=== PATIENT | female | born 1990 | race Caucasian/White ===

== ENCOUNTER 2020-04-30 10:56 | Outpatient (CLI) | payer OTHER, SELFPAY ==
--- NOTE | ~2020-04-30 | US_ITS ---
EXAMINATION: US OB <= 14 weeks fetus DATE: 04/30/2020 11:27 INDICATION: Antepartum hemorrhage at the transition from the first to the second trimester of pregnan cy TECHNIQUE: Real-time pelvic ultrasound utilizing both a transvaginal and transabdominal probe was pe rformed. The interpreting radiologist was not present for the study. COMPARISON: 03/26/2020 FINDINGS: The uterus measures 15.0 x 11.2 x 10.0 cm. There is an intrauterine gestational sac. A yolk sac and pole are identified. The crown rump length measures 10.6 cm, which correlates with an estimated gestational age of 13 weeks and 5 days which is concordant with the previously estimated gestational age on ultrasound dated 03/26/2020. heart motion is identified measuring 154 beats per minute (b pm) by M-mode Doppler. There is a 4.1 x 1.9 x 1.0 cm anechoic subchorionic hematoma along the left in ferior margin of the placenta. The right ovary is not visualized. The left ovary measures 3.5 x 2.3 x 2.2 cm with internal vascular flow on color Doppler. IMPRESSION: 1. Single living fetus with heart rate of 154 bpm. 2. Small subchorionic hematoma. 3. [place]-rump length of 7.6 cm which is concordant with previously estimated gestational age by ultra sound of 13 weeks 5 days with ultrasound estimated date of delivery (DARCI) of 10/31/2020. Reviewed, dictated and finalized at location B. IMPRESSION: 1. Single living fetus with heart rate of 154 bpm. 2. Small subchorionic hematoma. 3. [place]-rump length of 7.6 cm which is concordant with previously estimated ge stational age by ultrasound of 13 weeks 5 days with ultrasound estimated date o f delivery (DARCI) of 10/31/2020.
== END 2020-04-30 10:57 | disposition home or self-care (01) ==
PROVIDERS: PCP Family Medicine; Visit Provider Obstetrics & Gynecology
DX: O46.92 Antepartum hemorrhage, unspecified, second trimester (principal); Z3A.13 13 weeks gestation of pregnancy
CPT/HCPCS: 76801

== ENCOUNTER 2020-10-10 09:27 | Outpatient (RCR) | payer OTHER, SELFPAY ==
[2020-10-10 10:00] VITALS: BP 124/77; PULSE 96
== END 2020-10-30 10:07 | disposition home or self-care (01) ==
LOC: ANHOBOP 09:27
PROVIDERS: PCP Family Medicine; Visit Provider Obstetrics & Gynecology
DX: O36.8330 Maternal care for abnormalities of the fetal heart rate or rhythm, third trimester, not applicable or unspecified (principal); Z3A.37 37 weeks gestation of pregnancy
CPT/HCPCS: 59025

== ENCOUNTER 2020-10-24 05:51 | Inpatient (IN) | payer OTHER, SELFPAY ==
[2020-10-24] VITALS (154 sets, daily range): BP systolic 51–161; BP diastolic 28–113; PULSE 25–137; RESP 18; TEMP 36.2–36.7; O2SAT 84–100; BMI 34.8
--- NOTE | 2020-10-24 06:18 | P.PNAN_ITS ---
Anes - Eval Pre Procedure Procedure: labor epidural Date/Time: 10/24/20 06:18 Surgeon: manuel Preop Diagnosis: pain during labor Pre Op Diagnosis: IOL Patient Data Age: 30 Gender: F Height: Weight: Last Vital Signs Pulse 111 H 10/24/20 06:16 BP 117/84 10/24/20 06:16 Allergies Allergy/AdvReac Type Severity Reaction Status Date / Time No Known Allergies Allergy Verified 10/16/20 13:14 Home Medications Medication Instructions Recorded Confirmed Type prenat.vits,hi,grj-smlc-dyxwm 1 tablet PO DAILY 10/09/19 10/16/20 History Patient hx anesthesia problems: none Family hx anesthesia problems: none PMFSH Past Medical History Medical History Vaginal delivery x1 Surgical History Surgical History [place] teeth removed Family History Family History Grandparent Cerebrovascular accident Carcinoma of colon Diabetes mellitus Mother Family history of malignant neoplasm of skin Arthritis Social History Social History Smoking status: Never smoker Second hand tobacco smoke exposure: No Alcohol intake: current Alcohol use details: rarely Substance use: never Spiritual care concerns: No Exam Day of Procedure 10/24/20 06:18
[2020-10-24] MEDS: OXYTOCIN 30 UNITS/NS 500 ML 30 UNITS/500 ML BAG IV CONT (06:59)
[2020-10-24] MEDS: LACTATED RINGERS 1,000 ML 125 ML IV CONT ×4 (06:59→20:01)
[2020-10-24 07:00] LABS: Basophils Percent Auto 0.2 % (0.2-1.2); Eosinophils Absolute Auto 0.3 K/mm3 (0-0.3); Eosinophils Percent Auto 2.7 % (0-4.4); Hematocrit 38.7 % (37.0-47.0); Hemoglobin 12.6 g/dL (12.0-15.0); Immature Granulocyte Absolute 0.02 K/mm3 (0.00-0.031); Immature Granulocyte Percent A 0.2 % (0-0.5); Lymphocytes Absolute Auto 1.88 K/mm3 (0.9-3.2); Lymphocytes Percent Auto 20.5 % (18.3-44.2); Mean Corpuscular HGB Conc 32.6 g/dl (32-36); Mean Corpuscular Hemoglobin 29.1 pg (26-34); Mean Corpuscular Volume 89.4 fl (80-100); Mean Platelet Volume 10.6 fl (7.4-10.4); Monocytes Absolute Auto 0.5 K/mm3 (0.1-0.6); Monocytes Percent Auto 5.2 % (2.6-8.5); Neutrophils Absolute Auto 6.5 K/mm3 (1.3-6.7); Neutrophils Percent Auto 71.2 % (45.5-73.1); Platelet Count Result 205 k/mm3 (150-375); Red Blood Count 4.33 M/mm3 (4.2-5.4); Red Cell Distribution Width 14.3 % (11.5-14.5); White Blood Count 9.2 K/mm3 (4.5-10.0)
--- NOTE | 2020-10-24 07:28 | LDADM ---
This patient, Eunice Hauser, was admitted to Labor/Delivery/Recovery 107 on 10/24/20 at 05:51. Plans for labor, pain management and were discussed with patient. Patient/family oriented to hospital policies and general routines including ID bracelet, bed and alarms, visiting hours, pain management, procedures, bathroom and other care routines, personal items, smoking policy, room service/diet and guest tray routines, infant security routines, and visiting hours. Patient/Family are encouraged to report perceived risks to care and to ask questions if they do not understand what they are told or what they should do. See OBIX for further documentation.
--- NOTE | 2020-10-24 08:53 | PM.IMHP ---
H&P: HPI History of Present Illness Date/Time: 10/24/20 08:53 Patient at 39 weeks admitted for medical induction of labor. LMP 01/25/20 EDC 10/31/20 consistent with 9 week ultrasound. PNC uncomplicated. She had PIH with last . She took aspirin this until 37 weeks. No signs or symptoms of gestational hypertension. Labs reviewed. GBS neg. Discussed risk benefit of spontaneous labor vs medical induction. She has opted for MIL. Chief Complaint: Medical induction of labor. Review of Systems Review of Systems: All systems reviewed & are unremarkable except as noted in HPI and below Constitutional: Constitutional: Reports no additional constitutional complaints and Denies headache(s) Eyes: Eyes: Denies spots in vision ENT: Reports system reviewed and no additional complaints, except as documented and Denies headache(s) Cardiovascular: Cardiovascular: Denies chest pain and Denies dyspnea Respiratory: Respiratory: Denies dyspnea Gastrointestinal: Gastrointestinal: Reports no additional gastrointestinal complaints Genitourinary: Genitourinary: Reports amenorrhea Musculoskeletal: Musculoskeletal: Reports no additional musculoskeletal complaints Integumentary/Breasts: Skin/Breast: Denies breast mass and Denies rash Neurologic: Denies headache(s) Psychiatric: Psychiatric: Reports no additional psychiatric complaints PMFSH Past Medical History Medical History Vaginal delivery x1 Surgical History Surgical History [place] teeth removed Family History Family History Grandparent Cerebrovascular accident Carcinoma of colon Diabetes mellitus Mother Family history of malignant neoplasm of skin Arthritis Social History Social History Smoking status: Never smoker Second hand tobacco smoke exposure: No Alcohol intake: current Alcohol use details: rarely Substance use: never Spiritual care concerns: No Meds Home Medications and Allergies Home Medications Medication Instructions Recorded Confirmed Type prenat.vits,hi,piq-pxap-mtjmj 1 tablet PO DAILY 10/09/19 10/24/20 History Allergies Allergy/AdvReac Type Severity Reaction Status Date / Time No Known Allergies Allergy Verified 10/16/20 13:14 Vital Signs Vital Signs - 24 hr 10/24/20 06:13 10/24/20 06:16 10/24/20 07:00 Temperature 97.2 F L Pulse Rate 98 111 H Blood Pressure 116/79 117/84 10/24/20 07:01 10/24/20 07:16 10/24/20 07:31 Temperature Pulse Rate 104 H 97 92 Blood Pressure 116/63 114/70 111/56 L 10/24/20 07:46 10/24/20 08:01 Temperature Pulse Rate 97 90 Blood Pressure 118/70 123/64 Exam Const: General: no acute distress Eyes: General: appearance normal, both eyes and all related structures Resp: Effort & Inspection: normal respiratory effort Cardio: Rate: regular rate GI: Other: Gravid no fundal tenderness no right upper quadrant pain : External Female Exam: normal external appearance Speculum Exam - Vagina: normal appearance of the vagina Speculum Exam - Cervix: normal appearance of the cervix and Other cervical findings present (2/50/-3 soft ant) Skin: General skin exam: no rashes or lesions noted Neuro: Cognition (Neuro): normal cognition Extrem: General: normal to inspection Psych: Mental Status: mental status grossly normal H&P: Results Labs Labs: Short CBC 10/24/20 Range/Units 06:22 WBC 9.2 (4.5-10.0) K/mm3 Hgb 12.6 (12.0-15.0) g/dL Hct 38.7 (37.0-47.0) % Plt Count 205 (150-375) k/mm3 Assessment and Plan Assessment and plan (1) Elective induction of labor planned: Status: Acute Assessment and Plan: 1. Admit. 2. Pitocin induction. 3. Anticipate vaginal delivery.
--- NOTE | 2020-10-24 16:14 | PM.OBPNVD ---
OB - PN: Subj Subjective Date/time seen: 10/24/20 0830 FHt 145'Cat 1, no ctx. Cervix /3. Continue Pitocin. OB - PN: Obj Data Labs CBC & Chem 7: 10/24/20 06:22 Labs: Laboratory Results - last 24 hr 10/24/20 10/24/20 06:22 06:23 WBC 9.2 RBC 4.33 Hgb 12.6 Hct 38.7 MCV 89.4 MCH 29.1 MCHC 32.6 RDW 14.3 Plt Count 205 MPV 10.6 H Immature Gran % (Auto) 0.2 Neut % (Auto) 71.2 Lymph % (Auto) 20.5 [place] % (Auto) 5.2 Eos % (Auto) 2.7 Baso % (Auto) 0.2 Lymph # (Auto) 1.88 [place] # (Auto) 0.5 Eos # (Auto) 0.3 Baso # (Auto) 0.0 Abs Immat Gran (auto) 0.02 Absolute Neuts (auto) 6.5 Absolute Nucleated RBC 0.0 Nucleated RBC % 0.0 Blood Type A Positive Antibody Screen Negative OB - PN A/P Time Spent With Patient Time: Total time spent is greater than 50% in coordination of care (as documented) at patient's floor/unit and/or counseling patient:
--- NOTE | 2020-10-24 16:14 | PM.OBPNVD ---
OB - PN: Subj Subjective Date/time seen: 10/24/20 16:14 FHT 145 Cat 1, Ctx q 2 mild to mod cervix 60/-2, AROM clear. Continue Pitocin. OB - PN: Obj Data Labs CBC & Chem 7: 10/24/20 06:22 Labs: Laboratory Results - last 24 hr 10/24/20 10/24/20 06:22 06:23 WBC 9.2 RBC 4.33 Hgb 12.6 Hct 38.7 MCV 89.4 MCH 29.1 MCHC 32.6 RDW 14.3 Plt Count 205 MPV 10.6 H Immature Gran % (Auto) 0.2 Neut % (Auto) 71.2 Lymph % (Auto) 20.5 [place] % (Auto) 5.2 Eos % (Auto) 2.7 Baso % (Auto) 0.2 Lymph # (Auto) 1.88 [place] # (Auto) 0.5 Eos # (Auto) 0.3 Baso # (Auto) 0.0 Abs Immat Gran (auto) 0.02 Absolute Neuts (auto) 6.5 Absolute Nucleated RBC 0.0 Nucleated RBC % 0.0 Blood Type A Positive Antibody Screen Negative OB - PN A/P Time Spent With Patient Time: Total time spent is greater than 50% in coordination of care (as documented) at patient's floor/unit and/or counseling patient:
[2020-10-24] MEDS: SODIUM CHLORIDE 0.9% IV 300 ML 600 ML I-UTERINE (21:36)
[2020-10-25] VITALS (54 sets, daily range): BP systolic 95–129; BP diastolic 58–92; PULSE 42–109; RESP 16–18; TEMP 36.1–36.9; O2SAT 90–100
--- NOTE | 2020-10-25 00:48 | PM.OBPRVD ---
OB - Delivery Note Procedure Delivery date: 10/25/20 Procedure: Spontaneous vaginal delivery Induction method: per pitocin protocol Delivery augmentation: rupture of membranes Delivery monitor: external FHT and internal uterine (for amnioinfusion for repetitive moderate variables) Route of delivery: Episiotomy description: None Laceration Description: Vaginal - 1st Degree Delivery repair: vicryl (3.0 vicryl) Specimen: No Quantitative Blood Loss (ml): 200 Anesthesia type: Epidural Disposition: floor Complications: None Narrative: Patient admitted for medical induction of labor. She was started on Pitocin. She started having regular contractions in the afternoon and had assisted rupture of membranes at 1547. Cervix 3 cm. She progressed to active labor. Active labor significant for repetitive variable decelerations which improved with amnioinfusion bolus. She then had return of variables and the amnioinfusion was continued. She was 9 at 2021 and started having the variables which amnioinfusion initially helped. I was called due to her not progressing and variability had decreased. On exam cervix was a rim and her variability was moderate, variables mild. She was then complete and pushed well and had a vaginal delivery. [place] Baby Date of : 10/25/20 Time of : 12:34 Weeks of gestation at delivery: 39 Infant gender: Female presentation: vertex position: Left Occiput Anterior Placenta delivery description: Spontaneous cord vessel description: 3 Vessels, Nuchal Cord, Tight and Reduced (surgically reduced) score one minute: 8 score five minutes: 8
[2020-10-25] MEDS: OXYTOCIN 30 UNITS/NS 500 ML 30 UNITS/500 ML BAG 125 UNITS IV CONT (00:52)
--- NOTE | 2020-10-25 00:59 | PM.OBPNVD ---
OB - PN: Subj Subjective Date/time seen: 10/25/20 00:59 Called secondary to cervix unchanged and tracing with decreased variability and moderate variables. When I arrived tracing showed moderate variability and variables had improved to non repetitive mild. Since her active phase of labor she had repetitive variables which improved with position change, amnioinfusion bolus and then continued infusion which helped decrease the variables. Cervix rim and position +1. She pushed and the cervix was complete. She then proceeded to push. See delivery note. OB - PN: Obj Data Labs CBC & Chem 7: 10/24/20 06:22 Labs: Laboratory Results - last 24 hr 10/24/20 10/24/20 06:22 06:23 WBC 9.2 RBC 4.33 Hgb 12.6 Hct 38.7 MCV 89.4 MCH 29.1 MCHC 32.6 RDW 14.3 Plt Count 205 MPV 10.6 H Immature Gran % (Auto) 0.2 Neut % (Auto) 71.2 Lymph % (Auto) 20.5 [place] % (Auto) 5.2 Eos % (Auto) 2.7 Baso % (Auto) 0.2 Lymph # (Auto) 1.88 [place] # (Auto) 0.5 Eos # (Auto) 0.3 Baso # (Auto) 0.0 Abs Immat Gran (auto) 0.02 Absolute Neuts (auto) 6.5 Absolute Nucleated RBC 0.0 Nucleated RBC % 0.0 Blood Type A Positive Antibody Screen Negative OB - PN A/P Time Spent With Patient Time: Total time spent is greater than 50% in coordination of care (as documented) at patient's floor/unit and/or counseling patient:
[2020-10-25] MEDS: IBUPROFEN 600 MG TABLET PO ×3 (03:06→17:04)
--- NOTE | 2020-10-25 03:21 | OBPPTRN ---
Patient transferred to post room #292 via wheelchair. Support person present. Oriented to unit, room, information board, rooming in, admission packet and security measures. Patient verbalizes understanding.
[2020-10-25] MEDS: MULTIVIT/MIN/PREN/FOL AC/IRON TABLET 1 TAB PO (09:40)
[2020-10-25] MEDS: DOCUSATE SODIUM 100 MG CAPSULE PO ×2 (09:41→17:03)
--- NOTE | 2020-10-25 10:00 | PC.NURSE ---
Mother called out for assist with feeding, reporting has been sleepy. Infant will nurse in bursts with sleeping. Mother reports she had issues with first child with latch and sleepiness. is able to freely thrust tongue past gum ridge and flange both lips. Skin is intact on both nipples, no redness and bruising noted. Reviewed feeding cues, frequencies, duration of feedings, feeding elimination flow sheet, and signs of adequate intake. Demonstrated stimulation techniques to wake for feeding. Assisted with to breast. Reviewed positioning/alignment in cross cradle, holding breast in ?U? hold and guided asymmetrical latch on. Discussed rational for each. Infant able to latch correctly. Reviewed signs of a correct latch, effective nursing and suck swallow ratio. Infant nursed eagerly with steady draws and occasional swallowing noted for short bursts followed with long pausing. Reviewed the difference of effective vs ineffective nursing. Suggested mother stimulate while feeding to increase stimulation, increase intake and to assist with maintaining deep latch. responded with increased nursing if stimulated. Suggested to continue to stimulate with rubbing, keeping unwrapped while feeding, FOB to rub on feet and talking. Reviewed newborns are sleepy and needing to wake and keep awake for feeding is normal the first few days. Demonstrated how to adjust latch more deeply while feeding if needed. Nipple care reviewed of lanolin after feedings, warm compresses as needed. Instructed mother to call out for RN assistance if she is unable to latch infant for feeding or she has discomfort with nursing. Instructed feeding should be initiated three hours from start of last feeding or if feeding cues are noted before. Mother voiced understanding of information shared.
[2020-10-25 10:40] LABS: Rapid Plasma Reagin Non-Reactive (NonReactive)
[2020-10-26] VITALS: BP 104/65; PULSE 79; RESP 16; TEMP 36.4; O2SAT 100
[2020-10-26 05:08] LABS: Hematocrit 32.7 % (37.0-47.0); Hemoglobin 10.4 g/dL (12.0-15.0)
--- NOTE | 2020-10-26 07:19 | P.DS_ITS ---
DS: Admitting Diagnosis Discharge Date 10/24/20. Admitting Diagnosis Medical induction of labor DS: Discharge Diagnosis Discharge Diagnosis (1) Delivery normal: Code(s): O80 - Encounter for full-term uncomplicated delivery Status: Acute OB - DS: Summary Hospital Course Hospital Course: Patient admitted for medical induction of labor on 10/24. She had Pitocin induction. She had subsequent AROM. She progressed to complete and had a spontaneous vaginal delivery. she did well. She was ambulating well, adequate pain control and decrease lochia. She requested discharge to home on 10/26/20. OB Procedures : Ultrasound OB Procedures Intrapartum: Spontaneous Vag Delivery OB Procedures: : None Peripartum Data Delivery Method: Natural Vaginal Laceration Description: Vaginal - 1st Degree complications: none Status at Discharge Functional status at discharge: independent ambulation Time Spent with Patient Time attestation: Total time spent providing and/or coordinating discharge services: Exam Const: General: cooperative Orientation/consciousness: oriented to person, oriented to place and oriented to time HENMT: General nose exam: Normal external nose present Eyes: General: appearance normal, both eyes and all related structures Resp: Effort & Inspection: normal respiratory effort GI: Inspection: normal to inspection : External Female Exam: normal external appearance Other: Perineum healing Skin: General skin exam: normal color Neuro: General: oriented to person, oriented to place and oriented to time Extrem: General: normal to inspection and no calf tenderness Psych: Appearance: grossly normal Mental Status: mental status grossly no rmal DS: Data Data Completed and Pending Labs on day of discharge: Labs from last 24 hours 10/26/20 10/24/20 04:56 06:22 Hgb 10.4 L Hct 32.7 L RPR Non-reactive Discharge Plan Discharge Attending physician on discharge: Dominick Palmer Consulting providers: Marina Elias Discharging Clinician: Dominick Palmer Anticipated Discharge Date/Time: 10/26/20 07:24 Patient Disposition: Home, Self-Care Activity: may shower, no straining and pelvic rest Diet: regular Discharge Instructions: Pelvic rest for 4-6 weeks. May take over the counter Ibuprofen or Tylenol for pain. Call if saturating more than a pad an hour, leg redness, pain and swelling, temperature>100.4. No strenuous activity. Take vitamins daily. Patient Instructions: Antibiotic Form Stand Alone Forms: General Discharge Information Follow-up/Referrals: Dominick Palmer MD [Physician] - 4 Weeks Discharge Medications: Discontinued prenat.vits,hi,jop-fala-qooel Tablet 1 tablet PO DAILY RF: 0 Date of admission: 10/24/20 05:51 Primary Care Provider: Jass Mantilla Admitting Provider: Dominick Palmer Attending physician on admission: Dominick Palmer Condition: Stable
--- NOTE | 2020-10-26 07:25 | PM.OBPNVD ---
OB - PN: Subj Subjective Date/time seen: 10/26/20 07:25 She is requesting discharge to home if baby is ready to be discharged. Patient comments: pain well controlled, tolerating diet and other (Decreasing lochia.) baby status: doing well and nursing well [place] feeding status: exclusively breast feeding OB - PN: Obj Data Labs CBC & Chem 7: 10/26/20 04:56 Labs: Laboratory Results - last 24 hr 10/24/20 10/26/20 06:22 04:56 Hgb 10.4 L Hct 32.7 L RPR Non-reactive OB - PN A/P Plan day: 1 Plan: routine care Comments: Patient doing well. She request discharge today if baby allowed discharge. Time Spent With Patient Time: Total time spent is greater than 50% in coordination of care (as documented) at patient's floor/unit and/or counseling patient: Exam Const: General: comfortable and no acute distress Eyes: General: appearance normal, both eyes and all related structures Resp: Effort & Inspection: normal respiratory effort GI: Other: fundus firm nontender below umbilicus Extrem: General: normal to inspection Other: no calf tenderness Psych: Affect: normal affect Other: Abd: fundus firm below umbilicus, nontender Perineum: healing Ext: nontender
[2020-10-26 08:00] VITALS: BP 118/84; PULSE 97; RESP 18; TEMP 36.3
--- NOTE | 2020-10-26 08:00 | PC.NURSE ---
Patient was given the opportunity to view the discharge video Mother & Baby Care, The First Two Weeks and to ask questions. Patient declined viewing the video and has been given the mother/baby guide for home reference.
[2020-10-26] MEDS: WITCH HAZEL 40 PADS 1 PAD TOPICAL (08:18)
[2020-10-26] MEDS: BENZOCAINE 20% AER SPR (*SP) 56 GM CAN 1 SPRAY TOPICAL (08:18)
[2020-10-26] MEDS: DOCUSATE SODIUM 100 MG CAPSULE PO (08:19)
[2020-10-26] MEDS: MULTIVIT/MIN/PREN/FOL AC/IRON TABLET 1 TAB PO (08:19)
[2020-10-26] MEDS: IBUPROFEN 600 MG TABLET PO (08:19)
--- NOTE | 2020-10-26 10:58 | PC.NURSE ---
Self care and infant care discharge instructions given to pt. including follow up visit date and time. Mother verbalized understanding. No questions or concerns voiced. Very pleasant and cooperative.
[2020-10-28 07:50] VITALS: BP 123/77; PULSE 85; RESP 20; TEMP 37.1; O2SAT 100
--- NOTE | 2020-10-29 12:23 | PC.NURSE ---
Dr. Palmer called requesting consult with pt. to review pumping and bottle feeding due to mother's PPD. Pt. is tearful and states she has not slept for several days. Mother states she exclusively breastfed first child and has breastfed this for 4 days, and does not know how to pump or bottle feed. Mother has a pump for home use, she pumped during engorgement with first. Reviewed breast pump care and usage, pumping schedule, nipple care, and collection and storage of breast milk. Encouraged [id number], breast massage and manual expression to stimulate supply. Mother will pump every three hours to empty, FOB will bottle feed formula/EBM. Suggested mother sleep at night and pump only when needed, allowing her to rest. Assisted FOB with bottle feeding infant and paced feeding. FOB comfortable with bottle feeding, infant eagerly nippled 2 oz of formula. Mother will have FOB and family at her house for a few days to help with child care lead teacher and allowing her to rest. Information on outpatient services provided, mother understands she can call or return for appointment as needed. Mother has no further questions at this time.
== END 2020-10-26 11:54 | disposition home or self-care (01) | DRG 807 ==
LOC: ANHLDR 10-25 00:56 → ANHOB2 10-25 04:10
PROVIDERS: Admitting Provider Obstetrics & Gynecology; PCP Family Medicine; Visit Provider Obstetrics & Gynecology
DX: O69.1XX0 Labor and delivery complicated by cord around neck, with compression, not applicable or unspecified (principal); Z37.0 Single live birth; Z3A.39 39 weeks gestation of pregnancy; O36.8330 Maternal care for abnormalities of the fetal heart rate or rhythm, third trimester, not applicable or unspecified; O70.0 First degree perineal laceration during delivery
CPT/HCPCS: 36415; 85014; 85018; 85025; 86592; 86850; 86900; 86901; A9270; J2590; J2795; J7030; J7120

== ENCOUNTER 2022-09-17 11:16 | Outpatient (CLI) | payer OTHER, SELFPAY ==
--- NOTE | ~2022-09-17 | US_ITS ---
US axilla BI DATE: 09/17/2022 11:32 INDICATION: Bilateral axillary swelling, tenderness TECHNIQUE: Real-time and color flow imaging of the right and left axillary soft tissues COMPARISON: None FINDINGS: There is a benign appearing approximately 1 x 1.9 x 2 cm lymph node in the right axilla. Two benign lymph nodes are noted in the left axilla, measuring 1.4 x 0.8 x 1.6 cm and 1.2 x 0.6 x 1.6 cm. No suspicious mass or shadowing or other significant abnormality is noted in either axilla. IMPRESSION: Benign-appearing bilateral axillary lymph nodes Reviewed, dictated and finalized at Location A. Reviewed, dictated and finalized at location A.
== END 2022-09-17 11:17 ==
PROVIDERS: PCP Physician Assistant Medical; Visit Provider Physician Assistant Medical
DX: M79.89 Other specified soft tissue disorders (principal)
CPT/HCPCS: 76882

== ENCOUNTER 2023-07-14 10:07 | Day surgery (SDC) | payer OTHER, SELFPAY ==
[2023-07-01 09:24] VITALS: BMI 32.7
[2023-07-01 13:08] VITALS: BMI 32.1
--- NOTE | 2023-07-13 14:10 | WPDANESEPPF ---
Anes - Initial Pre Proc Eval Procedure: Operation Date: 07/14/23 13:00 Proposed Procedures p Diagnostic Colonoscopy - Alverto Kennedy MD Date/Time: 07/13/23 14:10 Surgeon: Alverto Kennedy MD Pre Op Diagnosis: BRBPR, Family History of Colon Polyps Patient Data Age: 32 Gender: F Height: 1.7 m Weight: 93 kg Allergies Allergy/AdvReac Type Severity Reaction Status Date / Time No Known Allergies Allergy Verified 07/14/23 11:54 Home Medications Medication Instructions Recorded Confirmed Type multivitamin 1 tablet PO DAILY 01/19/22 07/14/23 History cholecalciferol (vitamin D3) 25 25 mcg PO DAILY 12/30/22 07/14/23 History mcg (1,000 unit) capsule trazodone 50 mg tablet 100 mg PO .qhs #60 tabs 05/18/23 07/14/23 Rx sertraline 50 mg tablet (Zoloft) 50 mg PO DAILY #90 tabs 05/21/23 07/14/23 Rx Patient hx anesthesia problems: none Family hx anesthesia problems: none Results Review: All pre-operative results and documents have been reviewed as part of the pre-operative evaluation. [facility] Past Medical History Medical History BMI 32.0-32.9,adult Vaginal delivery x1 Surgical History Surgical History [place] teeth removed Family History Family History Grandparent Cerebrovascular accident Carcinoma of colon Diabetes mellitus Mother Family history of malignant neoplasm of skin Arthritis Social History Social History Smoking status: Never smoker Second hand tobacco smoke exposure: No Alcohol intake: current Drinks per week: 5 Alcohol use details: rarely Substance use: never Substance use type: does not use Do You Feel Safe in your Home?: Yes Lack of Transportation: No Lack of Food: Never True Current Housing: I Have Housing Concerned About Future Housing: No Difficulty Paying Gas/Electric Bills: No Difficulty Paying for Meds: No Currently Unemployed: No Education: Associate Degree Difficulty w/ Childcare or Family Care: No Living arrangements: with family Spiritual care concerns: No Anes - Eval Final PreProcedure Day of Procedure 07/13/23 14:10 Patient weight: obese Heart: regular rate and rhythm Lungs: clear to auscultation Airway: Mallampati scale class II Neurological: alert and oriented Last oral intake: >/= 8 hours ASA classification: II Emergent: no Anesthetic plan: proceed Anesthesia type and monitoring: general GIVS and standard monitoring Results Review: All pre-operative results and documents have been reviewed as part of the pre-operative evaluation. Informed Consent: The patient's anesthetic plan and its attendant risks and benefits were discussed with the patient/family/POA. Questions were solicited and answers provided to the satisfaction of the patient/family/POA.
[2023-07-14 12:05] VITALS: BP 132/70; PULSE 112; RESP 18; TEMP 36.8; O2SAT 99; BMI 31.8
--- NOTE | 2023-07-14 12:17 | PM.HPGS ---
History of Present Illness History of Present Illness Consent: Risks, benefits, and alternatives have been discussed and questions answered. Patient agrees to proceed with procedure. Chief complaint: BRBPR, Family History of Colon Polyps Narrative: Eunice Hauser is a 32 year old female referred for colonoscopy. Patient's current weight appetite and bowel movements are normal. Patient denies abdominal pain. She passed bright red blood per rectum on 1 occasion. This was noticed in the toilet bowl. She denies any abdominal pain. Family history is significant her father had colon polyps a grandparent had colon cancer. Patient has been referred for colonoscopy. She does notice occasional urgent bowel movement shortly after eating. Review of Systems Review of Systems: All systems reviewed & are unremarkable except as noted in HPI and below PMFSH Past Medical History Medical History BMI 32.0-32.9,adult Vaginal delivery x1 Surgical History Surgical History [place] teeth removed Family History Family History Grandparent Cerebrovascular accident Carcinoma of colon Diabetes mellitus Mother Family history of malignant neoplasm of skin Arthritis Social History Social History Smoking status: Never smoker Second hand tobacco smoke exposure: No Alcohol intake: current Drinks per week: 5 Alcohol use details: rarely Substance use: never Substance use type: does not use Do You Feel Safe in your Home?: Yes Lack of Transportation: No Lack of Food: Never True Current Housing: I Have Housing Concerned About Future Housing: No Difficulty Paying Gas/Electric Bills: No Difficulty Paying for Meds: No Currently Unemployed: No Education: Associate Degree Difficulty w/ Childcare or Family Care: No Living arrangements: with family Spiritual care concerns: No Meds Home Medications and Allergies Home Medications Medication Instructions Recorded Confirmed Type multivitamin 1 tablet PO DAILY 01/19/22 07/14/23 History cholecalciferol (vitamin D3) 25 25 mcg PO DAILY 12/30/22 07/14/23 History mcg (1,000 unit) capsule trazodone 50 mg tablet 100 mg PO .qhs #60 tabs 05/18/23 07/14/23 Rx sertraline 50 mg tablet (Zoloft) 50 mg PO DAILY #90 tabs 05/21/23 07/14/23 Rx Allergies Allergy/AdvReac Type Severity Reaction Status Date / Time No Known Allergies Allergy Verified 07/14/23 11:54 Vital Signs Vital Signs - 24 hr 07/14/23 12:05 Temperature 98.3 F Pulse Rate 112 H Respiratory Rate 18 Blood Pressure 132/70 Pulse Oximetry 99 Oxygen Delivery Room Air Exam Narrative: Physical exam reveals patient to be alert. Vital signs stable. HEENT exam is unremarkable. Patient is anicteric. Lungs are clear to auscultation and percussion. Heart is without murmur or extra sounds. Abdomen bowel sounds are present soft nontender . digital and rectal exam is normal. Assessment and Plan Assessment and plan (1) Blood in stool: Code(s): K92.1 - Melena Status: Acute Assessment and Plan: Patient had 1 episode of bright red blood per rectum. This may be secondary to hemorrhoids. Fiber supplementation is encouraged because of urgent bowel movements after eating. This may also help his may be given after requested colonoscopy. (2) Family history of colonic polyps: Code(s): Z83.719 - Family history of colon polyps, unspecified Status: Acute Assessment and Plan: Father had colon polyps is surveillance colonoscopy has been scheduled. Will perform this.
[2023-07-14] MEDS: LACTATED RINGERS 1,000 ML 150 ML IV CONT (12:24)
[2023-07-14 13:18] VITALS: BP 100/64; PULSE 90; RESP 18; O2SAT 97
[2023-07-14 13:28] VITALS: BP 105/70; PULSE 91; RESP 15; O2SAT 99
--- NOTE | 2023-07-14 13:34 | WPDANESPN ---
Anes - Prog Note Post-Op Date/Time: 07/14/23 13:34 Cardiovascular status: normal Respiratory status: normal Airway patency: baseline Mental status: baseline Post-Op hydration status: normal Vital Signs: Last Vital Signs Temp 36.8 C 07/14/23 12:05 Pulse 91 07/14/23 13:28 Resp 15 07/14/23 13:28 BP 105/70 07/14/23 13:28 Pulse Ox 99 07/14/23 13:28 O2 Del Method Room Air 07/14/23 13:28 Pain Score (VAS): 0 I/O: Intake & Output 07/13/23 07/14/23 07/14/23 23:59 07:59 15:59 Intake Total 500 Balance 500 Post-procedural complaints: none Patient Feedback: Patient satisfied with anesthetic care. Other Findings: Patient vital signs back to baseline. Patient denies nausea and vomiting. Patient's pain under control. Patient OK for discharge.
[2023-07-14 13:38] VITALS: BP 109/78; PULSE 88; RESP 17; O2SAT 98
== END 2023-07-14 13:44 | disposition home or self-care (01) ==
PROVIDERS: PCP Family Medicine; Visit Provider Internal Medicine Gastroenterology
PROC: 0DJD8ZZ Inspection of Lower Intestinal Tract, Via Natural or Artificial Opening Endoscopic (ICD-10-PCS; CPT 45378; principal; 2023-07-14 13:00)
DX: Z83.718 Family history of other colon polyps (principal); K62.5 Hemorrhage of anus and rectum
CPT/HCPCS: 45378